=== PATIENT | male | born 1975 | race Caucasian/White ===

== ENCOUNTER 2016-09-12 04:07 | Emergency (ER) | payer SELFPAY ==
[~2016-09-12] VITALS: Ht 185.4 cm; Wt 95.0 kg
[~2016-09-12 04:07] MED LIST: ARIP10TA13; CARB200T; METO25TA35 PO; MORP15TA3 PO; OXYC10TA6 PO; TRAM-385 PO; TRAM50TA2 PO
[2016-09-12] MEDS ORDERED: OXYC5TAB3 PO (04:23)
[2016-09-12] MEDS ORDERED: DIPHENHYDRAMINE 50 MG/ML, 1ML ONE (05:15)
[2016-09-12] MEDS ORDERED: METOCLOPRAMIDE 5 MG/ML, 2ML ONE (05:15)
[2016-09-12] MEDS ORDERED: LORazepam 2 MG/ML, 1ML ONE (05:15)
[2016-09-12] MEDS ORDERED: SODIUM CHLORIDE 0.9% 1,000ML IVBOLUS ONE (05:30)
[2016-09-12] MEDS ORDERED: LORazepam 2 MG/ML, 1ML IVPush ONE (05:30)
[2016-09-12] MEDS ORDERED: SODIUM CHLORIDE FLUSH 10ML SYR IVF ONE (05:30)
[2016-09-12] MEDS ORDERED: DIPHENHYDRAMINE 50 MG/ML, 1ML IVPush ONE (05:30)
[2016-09-12] MEDS ORDERED: METOCLOPRAMIDE 5 MG/ML, 2ML IVPush ONE (05:30)
[2016-09-12 05:55] LABS: BLOOD UREA NITROGEN 11 mg/dL (7-18)
[2016-09-12] MEDS ORDERED: KETOROLAC 30 MG/1 ML ONE (06:14)
[2016-09-12] MEDS ORDERED: KETOROLAC 30 MG/1 ML IVPush ONE (06:30)
[2016-09-12 08:04] VITALS: BP 137/91
== END 2016-09-12 08:06 | disposition home or self-care (01) ==
LOC: ED 07:18
DX: R56.9 Unspecified convulsions (principal); I10 Essential (primary) hypertension
CPT/HCPCS: 36415; 70450; 72125; 80048; 80307; 82040; 85025; 93005; 96361; 96374; 96375; 99285; J1200; J1885; J2060; J2765; J7030

== ENCOUNTER 2016-10-09 02:49 | Emergency (ER) | payer OTHER ==
[~2016-10-09] VITALS: Ht 185.4 cm; Wt 97.7 kg
[~2016-10-09 02:49] MED LIST changes: +OXYC5TAB3 PO
[2016-10-09] MEDS ORDERED: ONDANSETRON 2MG/ML, 2ML ONE (03:21)
[2016-10-09] MEDS ORDERED: MORPHINE SULFATE 4 MG/ML, 1ML ONE (03:21)
[2016-10-09] MEDS ORDERED: SODIUM CHLORIDE 0.9% 1,000ML IVBOLUS ONE (03:30)
[2016-10-09] MEDS ORDERED: MORPHINE SULFATE 4 MG/ML, 1ML IVPush PRN (03:30)
[2016-10-09] MEDS ORDERED: ONDANSETRON 2MG/ML, 2ML IVPush ONE (03:30)
[2016-10-09 03:58] LABS: ASPARTATE AMINO TRANSFERASE 26 U/L (15-37); BLOOD UREA NITROGEN 5 mg/dL (7-18)
[2016-10-09] MEDS ORDERED: MAALOX/HYOSCYAMINE/LIDOCAINE 45 ML BTL ONE (04:54)
[2016-10-09 04:58] VITALS: BP 142/83
[2016-10-09] MEDS ORDERED: MAALOX/HYOSCYAMINE/LIDOCAINE 45 ML BTL PO ONE (05:00)
[2016-10-09] MEDS ORDERED: DIPH25CA61 PO (05:03)
== END 2016-10-09 04:56 | disposition home or self-care (01) ==
LOC: ED 03:57
DX: K29.00 Acute gastritis without bleeding (principal); I10 Essential (primary) hypertension; Z88.0 Allergy status to penicillin; Z90.49 Acquired absence of other specified parts of digestive tract
CPT/HCPCS: 36415; 80053; 81001; 83690; 85025; 96361; 96374; 96375; 99284; J2405; J7030

== ENCOUNTER 2016-10-30 20:30 | Observation (INO) | payer OTHER ==
[~2016-10-30] VITALS: Ht 185.4 cm; Wt 100.3 kg
[~2016-10-30 20:30] MED LIST changes: -ARIP10TA13; +ARIP10TA33; +DIPH25CA61 PO
[2016-10-30] MEDS ORDERED: OXYC10TA6 PO (21:02)
[2016-10-30] MEDS ORDERED: TRAM50TA2 PO (21:02)
[2016-10-30 21:04] LABS: HEMATOCRIT 43.4 % (39.2-51.8); HEMOGLOBIN 14.4 g/dL (13.7-18.0); WHITE BLOOD COUNT 9.7 x10^3/uL (3.4-10)
[2016-10-30 21:17] LABS: BLOOD UREA NITROGEN 9 mg/dL (7-18)
[2016-10-30 21:21] LABS: ACETAMINOPHEN < 2 mcg/mL (10-30)
[2016-10-30 21:34] LABS: DAU SCREEN DISCLAIMER
[2016-10-31] MEDS ORDERED: ENOXAPARIN 40 MG/0.4 ML SQ SCH (01:00)
[2016-10-31] MEDS ORDERED: ONDANSETRON ODT 4 MG PO PRN (01:00)
[2016-10-31] MEDS ORDERED: LORazepam 2 MG/ML, 1ML IM PRN (01:00)
[2016-10-31] MEDS ORDERED: ACETAMINOPHEN 325 MG TABLET PO PRN (01:00)
[2016-10-31] MEDS ORDERED: HALOPERIDOL 5 MG/ML IM PRN (01:00)
[2016-10-31] MEDS ORDERED: HALOPERIDOL 5 MG TABLET PO PRN (01:00)
[2016-10-31 02:28] VITALS: BP 149/80
[2016-10-31 07:55] VITALS: BP 154/88
[2016-10-31] MEDS ORDERED: FLUOXETINE 20 MG CAPSULE PO SCH (09:00)
[2016-10-31 19:54] VITALS: BP 126/71
[2016-10-31] MEDS ORDERED: OXYcodone IR 5MG TABLET PO PRN (23:45)
[2016-11-01] MEDS ORDERED: OXYcodone IR 5MG TABLET PO PRN
== END 2016-10-31 23:56 | disposition left against medical advice (07) ==
LOC: ED 21:39 → INTOOBSV 10-31 00:01 → EDIP 10-31 00:01 → 3E 10-31 01:22
PROVIDERS: ADMIT Internal Medicine; ATTEND Internal Medicine
DX: R45.851 Suicidal ideations (principal); F31.9 Bipolar disorder, unspecified; I10 Essential (primary) hypertension; F15.90 Other stimulant use, unspecified, uncomplicated; F41.1 Generalized anxiety disorder; Z87.442 Personal history of urinary calculi; Z79.899 Other long term (current) drug therapy
CPT/HCPCS: 36415; 80048; 80307; 80329; 82040; 85025; 96372; 99285; G0378; J1630; G0480